=== PATIENT | female | born 1985 | race African-American/Black ===

== ENCOUNTER 2017-08-24 05:22 | Emergency (ER) | payer MEDICAID ==
[~2017-08-24] VITALS: Ht 154.9 cm; Wt 73.0 kg
[2017-08-24] MEDS ORDERED: TETANUS, DIPHTHERIA, PERTUSSIS VAC/PF 0.5ML (>7YR OLD) IM ONE (06:30)
[2017-08-24] MEDS ORDERED: BACITRACIN ZINC OINT UDPKT TOP ONE (06:30)
[2017-08-24] MEDS ORDERED: LIDOCAINE HCL 1% 20ML VIAL (Pyxis) INJ MC ONE (06:30)
[2017-08-24 08:03] VITALS: BP 139/88
[2017-08-24] MEDS ORDERED: IBUPROFEN 600MG TABLET PO ONE (09:15)
== END 2017-08-24 09:24 | disposition home or self-care (01) ==
LOC: ER 05:22
DX: S61.216A Laceration without foreign body of right little finger without damage to nail, initial encounter (principal); S71.112A Laceration without foreign body, left thigh, initial encounter; S20.219A Contusion of unspecified front wall of thorax, initial encounter; M25.572 Pain in left ankle and joints of left foot; F17.200 Nicotine dependence, unspecified, uncomplicated; F12.10 Cannabis abuse, uncomplicated; Y04.8XXA Assault by other bodily force, initial encounter; Y93.89 Activity, other specified; Y92.29 Other specified public building as the place of occurrence of the external cause; Y99.8 Other external cause status; Z98.890 Other specified postprocedural states
CPT/HCPCS: 12001; 71010; 73552; 73610; 81025; 99284; J3490; X7700; Z7610; 90715

== ENCOUNTER 2024-09-25 06:31 | Emergency (ER) | payer OTHER, MEDICAID ==
[~2024-09-25] VITALS: Ht 167.6 cm; Wt 80.0 kg
[2024-09-25 06:40] VITALS: BP 140/100; PULSE 74; RESP 18; O2SAT 100
[2024-09-25] MEDS: METOCLOPRAMIDE HCL 10MG/2ML VIAL IV ONE (06:45)
[2024-09-25 07:39] LABS: BASOPHILS % 0.3 % (0.0-2.0); EOSINOPHILS % 3.7 % (0.0-5.0); HEMATOCRIT. 40.2 % (36.0-48.0); HEMOGLOBIN. 12.9 g/dL (12.0-16.0); LYMPHOCYTES % 36.9 % (20.0-50.0); MEAN CORPUSCULAR HEMOGLOBIN 27.6 pg (28.0-32.0); MEAN CORPUSCULAR VOLUME 86.5 fL (81.0-99.0); MONOCYTES % 7.8 % (2.0-8.0); NEUTROPHILS % 51.3 % (40.0-76.0); PLATELET 248 x1000/uL (130-400); RED BLOOD CELL COUNT 4.65 mill/uL (4.2-5.4); RED CELL DISTRIBUTION WIDTH 13.4 % (11.6-14.6); WHITE BLOOD COUNT 5.1 x1000/uL (4.5-11.0)
[2024-09-25 07:40] LABS: CHLORIDE 109 mEq/L (98-107); POTASSIUM 3.6 mEq/L (3.5-5.1); SODIUM 141 mEq/L (136-145)
[2024-09-25 07:41] LABS: CALCIUM 9.4 mg/dL (8.7-10.4); CARBON DIOXIDE 26 mEq/L (21-32)
[2024-09-25 07:46] LABS: CREATININE 0.9 mg/dL (0.6-1.0); GLUCOSE 93 mg/dL (70-105); UREA NITROGEN BLOOD 8 mg/dL (9-23)
[2024-09-25 07:50] LABS: HCG SCREEN NEGATIVE
[2024-09-25 09:35] VITALS: TEMP 98.4
[2024-09-25] MEDS: ACETAMINOPHEN 325MG TABLET PO ONE (09:35)
[2024-09-25] MEDS: LACTATED RINGERS 1,000 ML IV SCH (09:35)
[2024-09-25 09:39] LABS: CLARITY URINE CLEAR (CLEAR); COLOR URINE YELLOW (YELLOW); GLUCOSE URINE NEGATIVE (NEGATIVE); KETONES URINE NEGATIVE (NEGATIVE); LEUKOCYTE ESTERASE URINE NEGATIVE (NEGATIVE); NITRITE URINE NEGATIVE (NEGATIVE); OCCULT BLOOD URINE NEGATIVE (NEGATIVE); PROTEIN URINE NEGATIVE (NEGATIVE); SPECIFIC GRAVITY URINE 1.006 (1.005-1.030); UROBILINOGEN URINE 0.2 E.U./dL (0.2-1.0)
== END 2024-09-25 10:06 | disposition home or self-care (01) ==
LOC: ER 06:31
DX: R51.9 Headache, unspecified (principal); I10 Essential (primary) hypertension; F12.10 Cannabis abuse, uncomplicated; Z98.890 Other specified postprocedural states
CPT/HCPCS: 80048; 81003; 84703; 85025; 36415; 70450; 96374; 99285; J2765; Z7610